=== PATIENT | female | born 1995 | race Caucasian/White ===

== ENCOUNTER 2017-05-15 17:14 | Emergency (ER) | payer OTHER ==
[2017-05-15 17:26] VITALS: BP 138/62
--- NOTE | 2017-05-15 18:06 | EDM.PDOC ---
<Suzette Mendoza - Last Filed: 05/15/17 18:25> ED HPI GENERAL MEDICAL PROBLEM - General Chief Complaint: Skin Complaint Stated Complaint: SPIDER BITE ON L FOOT Time Seen by Provider: 05/15/17 17:45 Source of Information: Reports: Patient History Limitations: Reports: No Limitations - History of Present Illness INITIAL COMMENTS - FREE TEXT/NARRATIVE: Maria is 21 year-old who presents today for the evaluation of a spider bite. She originally noticed the bite 6 days ago, but it was not irritating up until last night when it started to itch. She reports that the bite has not changed in size with no increased redness, warmth, or drainage. She denies any fever, chills, shortness of breath, or chest pain. Left Feet Pain Score (Numeric/FACES): 1 - Related Data Allergies Allergy/AdvReac Type Severity Reaction Status Date / Time bee venom protein (honey bee) Allergy Itching Verified 05/15/17 17:28 Penicillins Allergy Other Verified 05/15/17 17:28 Past Medical History - Past Health History Medical/Surgical History: Denies Medical/Surgical History Social & Family History - Tobacco Use Smoking Status *Q: Never Smoker - Caffeine Use Caffeine Use: Reports: Coffee - Recreational Drug Use Recreational Drug Use: Yes Drug Use in Last 12 Months: No Recreational Drug Type: Reports: Marijuana/Hashish ED ROS GENERAL - Review of Systems Review Of Systems: See Below Constitutional: Reports: No Symptoms. Denies: Fever, Chills, Malaise, Night Sweats, Diaphoresis Skin: Reports: Other (reports spider bite to her left foot. c/o itching. See HPI for further details. ) ED EXAM, SKIN/RASH Exam: See Below Exam Limited By: No Limitations General Appearance: Alert, No Apparent Distress Skin: Warm, Dry, Intact, Normal Color Location, Skin: Lower Extremity, Left (small abrasion to dorsal aspect of left foot, area surrounding abrasion appears excorciated (secondary to itching per patient), no redness, edema, or drainage. ) Course - Vital Signs Last Recorded V/S: Last Vital Signs Temp 98.1 F 05/15/17 17:23 Pulse 56 L 05/15/17 17:23 Resp 16 05/15/17 17:23 BP 138/62 05/15/17 17:23 Pulse Ox 99 05/15/17 17:23 - Re-Assessments/Exams Free Text/Narrative Re-Assessment/Exam: The patient presents for the evaluation of a spider bite to her left foot. On exam, there is no erythema, warmth, or drainage present to the area. Will recommend topical antibiotic ointment and hydrocortisone cream. The patient prefers to use OTC and will meat pickler a pharmacy. She can also use cool compresses for pruritus; she would avoid heat. Educated on return precautions. Patient verbalized understanding of the treatment plan and is in agreement. Departure - Departure Time of Disposition: 18:06 Disposition: Home, Self-Care 01 Clinical Impression: Abrasion foot/toe Qualifiers: Encounter type: initial encounter Laterality: left Qualified Code(s): S90.812A - Abrasion, left foot, initial encounter Spider bite Qualifiers: Encounter type: initial encounter Injury intent: accidental or unintentional Qualified Code(s): T63.301A - Toxic effect of unspecified spider venom, accidental (unintentional), initial encounter - Discharge Information Instructions: Spider Bite, [id number], Abrasion, [id number] Referrals: PCP,None [Primary Care Provider] - Forms: ED Department Discharge Additional Instructions: Apply over the counter antibiotic ointment twice per day. Apply over the counter hydrocortisone cream twice per day at different times. Use cool compresses for itching, avoid heat. <Shirley Mejia - Last Filed: 05/15/17 18:33> ED HPI GENERAL MEDICAL PROBLEM - General Source of Information: Reports: Patient History Limitations: Reports: No Limitations ED ROS GENERAL - Review of Systems Review Of Systems: See Below ED EXAM, SKIN/RASH Exam: See Below Course - Re-Assessments/Exams Free Text/Narrative Re-Assessment/Exam: I also saw the patient and agree with History & Physical exam as documented by Suzette Mendoza, [employer]-student. No findings to indicate cellulitis. Educated on supportive care.
== END 2017-05-15 18:25 | disposition home or self-care (01) ==
LOC: JD.ED 17:14
DX: T63.301A Toxic effect of unspecified spider venom, accidental (unintentional), initial encounter (principal); S90.812A Abrasion, left foot, initial encounter; Z88.0 Allergy status to penicillin; Z91.030 Bee allergy status
CPT/HCPCS: 99282; 99283